=== PATIENT | female | born 2000 | race Caucasian/White ===

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

== ENCOUNTER 2024-04-27 05:00 | Emergency (ER) | payer OTHER ==
[~2024-04-27] VITALS: Ht 165.1 cm; Wt 88.5 kg
[2024-04-27 05:06] VITALS: BP 124/76; PULSE 82; RESP 18; TEMP 97.8; O2SAT 99
[2024-04-27 05:55] VITALS: BP 116/88; PULSE 71; RESP 18; TEMP 97.8; O2SAT 97
== END 2024-04-27 05:55 | disposition home or self-care (01) ==
LOC: MED 05:00
DX: S09.90XA Unspecified injury of head, initial encounter (principal); M54.2 Cervicalgia; W22.8XXA Striking against or struck by other objects, initial encounter; Y92.89 Other specified places as the place of occurrence of the external cause; Y93.89 Activity, other specified; Y99.8 Other external cause status
CPT/HCPCS: 70450; 99284